=== PATIENT | male | born 1985 | race American Indian/Alaskan Native ===

== ENCOUNTER 2022-07-25 12:55 | Emergency (ER) | payer OTHER ==
[2022-07-25 13:32] LABS: ESTIMATED GFR 114 mL/min (>60)
== END 2022-07-25 14:35 | disposition home or self-care (01) ==
LOC: FB.ED 12:55
DX: R07.89 Other chest pain (principal)
CPT/HCPCS: 36415; 71045; 80053; 84484; 85025; 85379; 93005; 93010; 99283; 99285